=== PATIENT | female | born 1970 | race American Indian/Alaskan Native ===

== ENCOUNTER 2017-01-11 03:13 | Emergency (ER) | payer MEDICAID ==
[2017-01-11] MEDS ORDERED: TORADOL IM ONE (08:06)
[2017-01-11] MEDS ORDERED: NORCO 5/325 PO ONE (08:06)
--- NOTE | 2017-01-11 08:28 | Emergency Department Report ---
HPI - General Chief Complaint: Extremity Injury, Upper Time Seen by Provider: 01/11/17 07:37 - HPI HPI: 46-year-old female presents today with right shoulder pain. Patient states that she fell 2 months ago and was worked up. Patient does not know her diagnosis but states that she needs surgery and has not scheduled that he has became she is scared. Denies any new injury or trauma. Describes her pain as 10 out of 10 constant aching pain. Tried ibuprofen 800 mg without relief. Denies numbness, weakness, paresthesias. Denies fever, chills, nausea, vomiting , chest pain, shortness of breath, abdominal pain. ED Past Medical Hx - Past Medical History Previous Medical History?: Yes Hx Asthma: Yes Hx COPD: Yes Additional medical history: unknown - Surgical History Past Surgical History?: Yes Additional Surgical History: shoulder R - Social History Smoking Status: Current Some Day Smoker Substance Use Type: None - Medications Home Medications: Home Medications Medication Instructions Recorded Confirmed Last Taken Type amLODIPine [Norvasc] 5 mg PO DAILY #30 tab 01/11/17 Unknown Rx traMADol [Ultram 50 MG tab] 50 mg PO Q6HR PRN #14 tablet 01/11/17 Unknown Rx ED Review of Systems ROS: Stated complaint: RT SHOULDER PAIN Other details as noted in HPI Constitutional: denies: chills, fever, malaise Eyes: denies: eye pain ENT: denies: ear pain, throat pain, congestion Respiratory: denies: cough, shortness of breath, wheezing Cardiovascular: denies: chest pain, palpitations Endocrine: no symptoms reported Gastrointestinal: denies: abdominal pain, nausea, vomiting Musculoskeletal: joint swelling, arthralgia Neurological: denies: headache, weakness, numbness, paresthesias Physical Exam - Physical Exam Vital Signs: Vital Signs 01/11/17 04:10 Temperature 98.8 F Pulse Rate 93 H Blood Pressure 142/105 O2 Sat by Pulse 99 Oximetry Physical Exam: GENERAL: The patient is well-developed and well-nourished. Patient is in NAD. HEAD: Normocephalic. Atraumatic. NECK: Full range of motion. No midline or paraspinal tenderness palpation. CHEST/LUNGS: Clear to auscultation throughout. HEART/CARDIOVASCULAR: Regular rate and rhythm. No murmurs, rubs or gallops. ABDOMEN: Abdomen is soft, nontender. Bowel sounds normoactive. No guarding or rebound tenderness. RIGHT SHOULDER: Limited range of motion due to pain. No edema, deformity or crepitus noted. Normal sensation. 2 point discrimination intact. Peripheral pulses intact. Capillary refill less than 2 seconds. NEURO: Alert and oriented x 3. Normal gait. ED Course Vital Signs 01/11/17 04:10 Temperature 98.8 F Pulse Rate 93 H Blood Pressure 142/105 O2 Sat by Pulse 99 Oximetry ED Medical Decision Making - Lab Data Vital Signs 01/11/17 01/11/17 01/11/17 04:10 08:30 08:31 Temperature 98.8 F 98.2 F Pulse Rate 93 H 84 83 Respiratory 16 Rate Blood Pressure 142/105 151/121 Blood Pressure 152/121 [Left] O2 Sat by Pulse 99 98 Oximetry 01/11/17 09:50 Temperature Pulse Rate 81 Respiratory 16 Rate Blood Pressure Blood Pressure 139/87 [Left] O2 Sat by Pulse 100 Oximetry - Medical Decision Making 46-year-old female presents today with chronic right shoulder pain. Patient was given [place] and reports some symptomatic relief. Patient was also given clonidine 0.1 mg for her elevated blood pressure. Emphasized the importance of follow up with primary care physician and explained to patient that uncontrolled hypertension can lead to long-term complications of hypertension/elevated blood pressure including stroke, heart attack, disability, , paralysis, permanent loss of quality of life. Patient expressed understanding. She will be sent home on Norvasc 5 mg and is highly recommended to discuss the medication with her primary care provider before starting. Patient is in no acute distress at this time. She will be discharged home and is encouraged to follow up with a primary care provider. She will be sent home on tramadol and is encouraged to return to the emergency room for any worsening symptoms. Critical care attestation.: If time is entered above; I have spent that time in minutes in the direct care of this critically ill patient, excluding procedure time. ED Disposition Clinical Impression: Shoulder pain Qualifiers: Laterality: right Chronicity: chronic Qualified Code(s): M25.511 - Pain in right shoulder HTN (hypertension) Qualifiers: Hypertension type: essential hypertension Qualified Code(s): I10 - Essential ( primary) hypertension Disposition: DISCHARGED TO HOME OR SELFCARE Is pt being admited?: No Does the pt Need Aspirin: No Condition: Stable Instructions: Hypertension (ED), Arthralgia (ED) Additional Instructions: Follow-up with the orthopedic. Return to the emergency department if symptoms worsen. Prescriptions: amLODIPine [Norvasc] 5 mg PO DAILY #30 tab traMADol [Ultram 50 MG tab] 50 mg PO Q6HR PRN #14 tablet PRN Reason: Pain Referrals: PRIMARY CARE, [Primary Care Provider] - 3-5 Days VELIA TAYLOR MD [Staff Physician] - 3-5 Days Forms: Work/School Release Form(ED) Time of Disposition: 08:28
[2017-01-11] MEDS ORDERED: CATAPRES ONE (08:31)
[2017-01-11] MEDS ORDERED: CATAPRES PO ONE (09:03)
[2017-01-11 09:51] VITALS: BP 139/87
== END 2017-01-11 10:17 | disposition home or self-care (01) ==
LOC: ED 03:13
DX: M25.511 Pain in right shoulder (principal); I10 Essential (primary) hypertension; J44.9 Chronic obstructive pulmonary disease, unspecified; J45.909 Unspecified asthma, uncomplicated; F17.200 Nicotine dependence, unspecified, uncomplicated
CPT/HCPCS: 99282; J1885

== ENCOUNTER 2017-04-15 09:25 | Emergency (ER) | payer MEDICAID ==
--- NOTE | 2017-04-15 10:31 | XRay Report ---
CHEST 2 VIEWS INDICATION: Cough, shortness of breath. COMPARISON: None similar at this institution. FINDINGS: PA and lateral chest radiographs demonstrate normal cardiomediastinal silhouette. Clear lungs. Slight mid to lower thoracic spine degenerative spurring. CONCLUSION: No acute disease in the chest. Thank you for the opportunity to participate in this patient's care.
[2017-04-15] MEDS ORDERED: DUONEB 0.5 MG-3 MG/3 ML SOLN IH ONE (12:56)
[2017-04-15] MEDS ORDERED: TORADOL IM ONE (12:56)
[2017-04-15] MEDS ORDERED: DECADRON IM ONE (12:56)
[2017-04-15] MEDS ORDERED: PHENERGAN/CODEINE 6.25-10 MG/5ML PO ONE (13:30)
--- NOTE | 2017-04-15 13:46 | Emergency Department Report ---
Entered by ANISH MOORE, acting as scribe for ALINA KONG PA. - General Chief Complaint: Upper Respiratory Infection Stated Complaint: COLD SYMPTOMS/COUGH Time Seen by Provider: 04/15/17 12:50 Source: patient Mode of arrival: Ambulatory Limitations: No Limitations - History of Present Illness Initial Comments: 46 year old female with PMHx of COPD, Asthma, and HTN presents to the ED for evaluation of cold symptoms that started a week ago. Patient reports chest pain when she coughs and reports productive cough with green septum. Symptoms include wheezing but denies sore throat, ear pain, fever, chills, and N/V. Patient is currently taking medication for COPD, Asthma, and HTN. Patient is allergic to ASA. MD Complaint: cough (green sputum) -: week(s) (1) Severity: mild Severity scale (0 -10): 3 Quality: aching, other (tightness, pleuritic chest pressure) Consistency: intermittent Improves With: nothing Worsens With: nothing Associated Symptoms: denies other symptoms, cough, chest pain (pleuritic chest pain only when coughing). denies: fever, chills, headache, sore throat, shortness of breath, abdominal pain, nausea, vomiting Treatments Prior to Arrival: none - Related Data Previous Rx's Medication Instructions Recorded Last Taken Type amLODIPine [Norvasc] 5 mg PO DAILY #30 tab 01/11/17 Unknown Rx traMADol [Ultram 50 MG tab] 50 mg PO Q6HR PRN #14 tablet 01/11/17 Unknown Rx Azithromycin [Zithromax Z-EMANI] 250 mg PO DAILY #1 pack 04/15/17 Unknown Rx guaiFENesin DM [Robitussin Dm] 5 ml PO BID #120 udc 04/15/17 Unknown Rx Allergies Allergy/AdvReac Type Severity Reaction Status Date / Time aspirin AdvReac Vomiting Verified 04/15/17 09:50 ED Review of Systems Comment: All other systems reviewed and negative Constitutional: no symptoms reported. denies: chills, diaphoresis, fever, weakness Eyes: denies: eye pain, eye discharge, vision change ENT: denies: ear pain, throat pain, dental pain, hearing loss Respiratory: cough, wheezing. denies: shortness of breath Cardiovascular: denies: chest pain, palpitations Gastrointestinal: denies: abdominal pain, nausea, vomiting Genitourinary: denies: urgency, dysuria Musculoskeletal: denies: back pain Skin: denies: rash, lesions Neurological: denies: headache, weakness, numbness Psychiatric: denies: anxiety, depression Hematological/Lymphatic: denies: easy bleeding ED Past Medical Hx - Past Medical History Hx Hypertension: Yes Hx Asthma: Yes Hx COPD: Yes Additional medical history: unknown - Surgical History Additional Surgical History: TUBAL LIGATION - Social History Smoking Status: Current Every Day Smoker Substance Use Type: None - Medications Home Medications: Home Medications Medication Instructions Recorded Confirmed Last Taken Type amLODIPine [Norvasc] 5 mg PO DAILY #30 tab 01/11/17 Unknown Rx traMADol [Ultram 50 MG tab] 50 mg PO Q6HR PRN #14 tablet 01/11/17 Unknown Rx Azithromycin [Zithromax Z-EMANI] 250 mg PO DAILY #1 pack 04/15/17 Unknown Rx guaiFENesin DM [Robitussin Dm] 5 ml PO BID #120 udc 04/15/17 Unknown Rx ED Physical Exam - General Limitations: No Limitations General appearance: alert, in no apparent distress - Head Head exam: Present: atraumatic, normocephalic - Eye Eye exam: Present: normal appearance, PERRL, EOMI Pupils: Present: normal accommodation - ENT ENT exam: Present: normal exam, normal orophraynx, mucous membranes moist - Neck Neck exam: Present: normal inspection, full ROM. Absent: tenderness, lymphadenopathy - Respiratory Respiratory exam: Present: wheezes (mild wheezing bilaterlly). Absent: respiratory distress, rales, rhonchi - Cardiovascular Cardiovascular Exam: Present: regular rate, normal rhythm, normal heart sounds. Absent: systolic murmur, diastolic murmur, rubs, gallop - GI/Abdominal GI/Abdominal exam: Present: soft, normal bowel sounds. Absent: tenderness, guarding - Extremities Exam Extremities exam: Present: normal inspection, full ROM, normal capillary refill - Back Exam Back exam: Present: normal inspection, full ROM. Absent: tenderness - Neurological Exam Neurological exam: Present: alert, oriented X3, normal gait - Psychiatric Psychiatric exam: Present: normal affect, normal mood - Skin Skin exam: Present: warm, dry, intact ED Course Vital Signs 04/15/17 09:54 Temperature 98.6 F Pulse Rate 88 Respiratory 18 Rate Blood Pressure 135/80 O2 Sat by Pulse 99 Oximetry ED Medical Decision Making - Radiology Data Radiology results: report reviewed CXR No acute disease in the chest. - Medical Decision Making 46 year old female presents to ED with productive cough, pleuritic chest pain x1week. patient denies fever, sore throat. patient has history of COPD and will be given course of PO outpatient antibiotics for complicated bronchitis. patient states she feels better after breathing treatment and IM steroids and cough syrup. patient has no wheezing on re examination. patient is stable, neurologically intact and in no acute distress. ED Disposition Clinical Impression: Bronchitis, acute Disposition: DC-01 TO HOME OR SELFCARE Is pt being admited?: No Does the pt Need Aspirin: No Condition: Stable Instructions: Acute Bronchitis (ED) Prescriptions: Azithromycin [Zithromax Z-EMANI] 250 mg PO DAILY #1 pack guaiFENesin DM [Robitussin Dm] 5 ml PO BID #120 c Referrals: PRIMARY CARE,MD [Primary Care Provider] - 3-5 Days This documentation as recorded by the OSCAR tam PEARL,accurately reflects the service I personally performed and the decisions made by ,ALINA KONG PA.
[2017-04-15 13:56] VITALS: BP 132/83
== END 2017-04-15 13:56 | disposition home or self-care (01) ==
LOC: ED 09:25
DX: J20.9 Acute bronchitis, unspecified (principal); J44.9 Chronic obstructive pulmonary disease, unspecified; J45.909 Unspecified asthma, uncomplicated; I10 Essential (primary) hypertension; F17.200 Nicotine dependence, unspecified, uncomplicated; Z98.51 Tubal ligation status; Z88.6 Allergy status to analgesic agent
CPT/HCPCS: 71020; 94640; 96372; 99283; J1100